=== PATIENT | female | born 1950 | race Two or more races ===

== ENCOUNTER 2017-09-24 09:55 | Emergency (ER) | payer OTHER ==
[~2017-09-24] VITALS: Ht 162.6 cm; Wt 86.2 kg
[~2017-09-24 09:55] MED LIST: CLONAZEPAM0.5 MG; GABAPENTIN300 MG; ORPH100T PO; RELAFEN; RESTORIL7.5 MG; WELLBUTRIN75 MG
== END 2017-09-24 12:46 | disposition home or self-care (01) ==
LOC: ER 09:55
DX: M25.562 Pain in left knee (principal)

== ENCOUNTER 2022-02-23 13:47 | Emergency (ER) | payer OTHER ==
[~2022-02-23] VITALS: Ht 162.6 cm; Wt 85.7 kg
== END 2022-02-23 19:32 | disposition home or self-care (01) ==
LOC: ER 13:47
DX: R05.9 Cough, unspecified (principal); Z20.822 Contact with and (suspected) exposure to COVID-19

== ENCOUNTER 2022-12-26 19:21 | Emergency (ER) | payer OTHER ==
[~2022-12-26] VITALS: Ht 162.6 cm; Wt 110.2 kg
[2022-12-27 01:13] LABS: HEMATOCRIT 42.1 % (36.0-45.00); HEMOGLOBIN 13.7 g/dL (12.0-15.00); MEAN CELL VOLUME 87.4 fL (80.00-100.00); MEAN CORPUSCULAR HEMOGLOBIN 28.5 pg (27.00-32.0); MEAN CORPUSCULAR HGB CONC 32.6 g/dl (32.0-36.0); PLATELET COUNT 198 K/uL (150-450); RED BLOOD COUNT 4.81 M/uL (4.00-6.00); RED CELL DISTRIBUTION WIDTH 13.4 % (11.5-14.5)
== END 2022-12-27 03:21 | disposition home or self-care (01) ==
LOC: ER 19:22
PROVIDERS: General Practice
DX: J00 Acute nasopharyngitis [common cold] (principal); Z20.822 Contact with and (suspected) exposure to COVID-19

== ENCOUNTER 2023-09-23 15:38 | Emergency (ER) | payer OTHER ==
[~2023-09-23] VITALS: Ht 157.5 cm; Wt 90.7 kg
[2023-09-23 20:04] LABS: HEMATOCRIT 41.3 % (36.0-45.00); HEMOGLOBIN 13.9 g/dL (12.0-15.00); MEAN CELL VOLUME 87.3 fL (80.00-100.00); MEAN CORPUSCULAR HEMOGLOBIN 29.4 pg (27.00-32.0); MEAN CORPUSCULAR HGB CONC 33.7 g/dl (32.0-36.0); PLATELET COUNT 204 K/uL (150-450); RED BLOOD COUNT 4.73 M/uL (4.00-6.00); RED CELL DISTRIBUTION WIDTH 13.7 % (11.5-14.5)
[2023-09-23 20:42] LABS: ALBUMIN 3.8 gm/dL (3.4-5.0); BILIRUBIN TOTAL 0.39 mg/dL (0.3-1.2); CALCIUM 9.2 mg/dL (8.5-10.1); CREATININE SERUM 0.85 mg/dL (0.55-1.02); GFR 65.56; GLOBULINA 3.4 G/DL (2.4-3.5); POTASSIUM 4.44 mEq/L (3.5-5.1); TOTAL PROTEIN 7.2 gm/dL (6.4-8.2)
[2023-09-23 20:48] LABS: URINE APPEARANCE Clear; URINE BILIRRUBIN Negative (NEGATIVE); URINE BLOOD Negative; URINE COLOR Yellow; URINE GLUCOSE Negative (NEGATIVE); URINE LEUKOCYTE Small; URINE NITRATE Negative; URINE PROTEIN Negative (NEGATIVE); URINE UROBILINOGEN 0.2 E.U./dl
[2023-09-23 20:53] LABS: URINE BACTERIA 1664.3 uL (0.0-1933); URINE RBC 3.5 uL (0.0-20.8); URINE WBC 38.3 uL (0.0-23.2)
== END 2023-09-24 02:03 | disposition home or self-care (01) ==
LOC: ER 15:39
PROVIDERS: Emergency Medicine
DX: R10.9 Unspecified abdominal pain (principal); R14.3 Flatulence; R14.1 Gas pain; R14.2 Eructation
CPT/HCPCS: 36415; 74177; 99284; Q9965